=== PATIENT | male | born 1960 | race African-American/Black ===

== ENCOUNTER 2019-08-27 02:32 | Emergency (ER) | payer OTHER ==
[~2019-08-27] VITALS: Ht 190.5 cm; Wt 136.5 kg
[2019-08-27 03:26] LABS: ABSOLUTE NEUTROPHILS 1.7 thou/uL (1.4-8.2); BASOPHILS 1.5 % (0.0-2.0); EOSINOPHILS 1.4 % (0.0-3.0); HEMATOCRIT 43.3 % (42.0-52.0); HEMOGLOBIN 13.4 gm/dL (14.0-18.0); LYMPHOCYTES 46.7 % (24.0-44.0); MCH 22.3 pg (26.0-34.0); MCHC 30.9 g/dL (28.0-37.0); MCV 72.1 fL (80.0-100.0); MONOCYTES 11.7 % (1.0-8.0); PLATELET COUNT 233 thou/uL (150-400); POLYS 38.7 % (36.0-66.0); RBC 6.01 mil/uL (4.50-6.00); RDW 15.5 % (10.5-14.5); WBC 4.4 thou/uL (4.0-11.0)
[2019-08-27 03:29] LABS: ANION GAP 9 mmol/L (7-16); BUN 14 mg/dL (7-18); CALCIUM 8.2 mg/dL (8.5-10.1); CHLORIDE 102 mmol/L (98-107); CO2 26 mmol/L (21-32); CREATININE 0.9 mg/dL (0.7-1.3); GLUCOSE 117 mg/dL (74-106); POTASSIUM 3.5 mmol/L (3.5-5.1); SODIUM 137 mmol/L (136-145)
[2019-08-27 03:35] LABS: ALBUMIN 3.4 g/dL (3.4-5.0); DIRECT BILIRUBIN < 0.1 mg/dL (<0.1-0.2); SGOT 32 U/L (15-37); SGPT 30 U/L (30-65); TOTAL BILIRUBIN 0.2 mg/dL (<0.1-1.0); TOTAL PROTEIN 7.4 g/dL (6.4-8.2)
[2019-08-27 04:29] VITALS: BP 133/75
[2019-08-27 06:02] LABS: HYPOCHROMASIA 2+; MICROCYTES 1+
--- NOTE | 2019-08-27 13:40 | EKG ---
[facility] [place] [address] ELECTROCARDIOGRAM REPORT Name: LANDRYDEBORA Guadalupe Room #: DEP [facility]#: [id number] Admission: 08/27/19 Attend Phys: Discharge: 08/27/19 Date of : 62 Report #: [id number] THIS REPORT FOR: cc: Kayleigh Matias MD, Linda MD Couchonnal,Richard Pugh MD ~ THIS REPORT FOR: //name// [facility] ED Test Date: 2019-08-27 Test Time: 02:50:24 Pat Name: DEBORA LANDRY Department: Room: Gender: [employer] Officer: RENZO : 1960 Requested By: Ashley Krueger Order Number: [id number] MD: Richard Martinez Measurements Intervals [place] Rate: 83 P: 52 IA: 182 QRS: 38 QRSD: 95 T: 40 QT: 376 QTc: 442 Interpretive Statements Sinus rhythm No previous ECG available for comparison Electronically Signed On 08-27-2019 13:39:48 [employer] by Richard Martinez [email or web address] <ELECTRONICALLY SIGNED> By: Richard Martinez MD 08/27/19 1339 0250 025 Richard Martinez MD /LARRY
== END 2019-08-27 04:30 | disposition home or self-care (01) ==
LOC: ER 02:32
PROVIDERS: Emergency Medicine
DX: R53.1 Weakness (principal); R20.2 Paresthesia of skin; F17.210 Nicotine dependence, cigarettes, uncomplicated